=== PATIENT | female | born 1990 | race Caucasian/White ===

== ENCOUNTER 2020-01-23 09:22 | Emergency (ER) | payer MEDICAID ==
[~2020-01-23] VITALS: Ht 154.9 cm; Wt 54.7 kg
[2020-01-23 09:26] VITALS: BP 112/80
--- NOTE | 2020-01-23 09:37 | NUR ---
FELL THIS MORNING GOING DOWN STAIRS AND TWISTED RIGHT ANKLE
[2020-01-23] MEDS ORDERED: IBUPROFEN 600 MG TABLET ONE (09:49)
[2020-01-23] MEDS ORDERED: IBUPROFEN 600 MG TABLET PO ONE (10:00)
== END 2020-01-23 11:15 | disposition home or self-care (01) ==
LOC: ED 09:51
DX: S92.355A Nondisplaced fracture of fifth metatarsal bone, left foot, initial encounter for closed fracture (principal); X50.1XXA Overexertion from prolonged static or awkward postures, initial encounter; Y93.89 Activity, other specified; Y92.488 Other paved roadways as the place of occurrence of the external cause; Y99.8 Other external cause status
CPT/HCPCS: 29515; 99283